=== PATIENT | male | born 1960 | race Caucasian/White ===

== ENCOUNTER → 2022-12-18 11:19 | Outpatient (CLI) | payer OTHER, MEDICAID, SELFPAY ==
--- NOTE | 2022-12-18 11:30 | DI.RAD.S_ITS ---
PROCEDURE: XR LUMBAR SPINE MIN 4V INDICATIONS: BACK PAIN TECHNIQUE: 5 views of the lumbar spine were acquired, including bilateral oblique views. COMPARISON: None. FINDINGS: Bones: Five nonrib-bearing vertebrae are present. Normal transverse alignment. Mild kyphotic curvature at the L1-2 level. Posterior osseous fusion from L3 through S1, disc calcification at L2-3, and moderately severe disc height loss L1-2 with anterior endplate spurs and sclerosis. No vertebral body compression fractures. No suspicious bony lesions. Soft tissues: Overlying bowel gas pattern is normal. No suspicious soft tissue calcifications. Oblique images: Postsurgical changes from L3 through S1. No upper lumbar pars defects. IMPRESSION: 1. Posterior lumbosacral fusion appears intact. 2. Severe upper lumbar disc degeneration without subluxation. There is mild kyphotic curvature at L1-2. Dictated by: Lelo Casanova M.D. on 12/18/2022 at 17:16 Approved by: Lelo Casanova M.D. on 12/18/2022 at 17:18
== END ==
PROVIDERS: PCP Internal Medicine; Referring Provider Physical Medicine & Rehabilitation; Visit Provider Physical Medicine & Rehabilitation
DX: M51.36 Other intervertebral disc degeneration, lumbar region (principal); M54.9 Dorsalgia, unspecified; Z98.1 Arthrodesis status
CPT/HCPCS: 72110